=== PATIENT | male | born 1955 | race Caucasian/White ===

== ENCOUNTER 2017-09-27 09:44 | Day surgery (SDC) | payer BC ==
[2017-09-27] MEDS ORDERED: PROPOFOL 10 MG/ML VIAL IV ONE (09:45)
[2017-09-27] MEDS ORDERED: LIDOCAINE 2% MDV (20MG/ML) 20ML VIAL IV ONE (09:45)
--- NOTE | 2017-09-27 14:50 | Operative Note ---
DATE OF SURGERY: 09/27/2017 OPERATION: COLONOSCOPY to the cecum with cold snare polypectomy x1 and cold biopsy forceps polypectomy x1. INDICATION: Colorectal cancer screening. ANESTHESIA: Intravenous sedation was administered by the department of anesthesiology and included Diprivan titrated to effect. PROCEDURE: Following informed consent from this alert individual including a discussion of the risks and benefits of the procedure and an opportunity for the patient to ask questions, the patient was in the left lateral decubitus position. A digital rectal examination was performed. No abnormalities were noted. Following this, the Olympus [id number] video colonoscope was inserted into the rectum without resistance. The rectal mucosa had a normal appearance with normal folds and distensibility. The colonoscope was advanced up through the colon to the level of the cecum without much difficulty. Throughout the bowel the mucosa appeared normal, the folds were normal, and the bowel was fairly well distensible. A few scattered diverticula were noted in the sigmoid colon. The cecum was defined by noting the appendiceal orifice and ileocecal valve. Retroflexion in the cecum was endoscopically unremarkable. The colon preparation was good. In retroflexion, a diminutive 3 mm polyp was noted in the ascending colon and this was removed with biopsy forceps. There was a second 6 mm polyp noted in the ascending colon seen upon withdrawal and this was removed with cold snare polypectomy and suctioned through the endoscope into a collection container. No other polyps were seen upon withdrawal. Again diverticulosis was noted in the sigmoid colon. Retroflexion in the rectum revealed hypertrophied anal papillae. The endoscope was straightened and withdrawn. The patient tolerated the procedure well and was returned to the recovery area in stable condition. IMPRESSION: 1. Two ascending colon polyps as described above, one measuring 3 mm in size, removed with biopsy forceps, and one that was 6 mm in size removed with cold snare polypectomy. 2. Sigmoid diverticulosis. 3. Hypertrophied anal papillae. RECOMMENDATIONS: Further recommendations will be forthcoming pending results of pathology obtained today. Followup will also be with Dr. Rudy Zaman. As always, thank you for allowing me to participate in the care of your patient. CC: DO ZENY Jang
== END 2017-09-27 11:33 | disposition home or self-care (01) ==
LOC: HOP 09:44
PROVIDERS: ATTEND Internal Medicine Gastroenterology
DX: Z12.11 Encounter for screening for malignant neoplasm of colon (principal); D12.2 Benign neoplasm of ascending colon; I10 Essential (primary) hypertension; E78.00 Pure hypercholesterolemia, unspecified; K57.30 Diverticulosis of large intestine without perforation or abscess without bleeding; K62.89 Other specified diseases of anus and rectum